=== PATIENT | male | born 1950 | race African-American/Black ===

== ENCOUNTER 2016-06-24 01:01 | Emergency (ER) | payer OTHER ==
[~2016-06-24 01:01] MED LIST: AMLODIPINE BES2.5 M1; ANT12.5 PO; ATI1 PO; ATORVASTATIN CA40 M1 PO; BENAZEPRIL HYDR20 M1 PO; BENAZEPRIL20 M1 PO; CARDIZEM CD180 MG PO; CARDIZEM CD360 MG PO; CARL PO; CIPRO500 MG PO; COL100 PO; DICLOFENAC SODI75 MG PO; DIFLUCAN200 MG PO; DILTIAZEM HCL120 M2; DILTIAZEM HCL120 M2 PO; ECO81 PO; FER300 PO; FINASTERIDE5 M1 PO; FLO4; FLO4 PO; FOL1 PO; GAS RELIEF20 MG/0.3 PO; HCTZ/LISINOPRIL1 TA1 PO; LAC PO; LEVAQUIN500 MG PO; LEVAQUIN750 MG PO; LIPI10 PO; LOTENSIN10 MG PO; MAGNESIUM OXID400 MG PO; MYL80 CH; NEU300 PO; OMEPRAZOLE DR20 M1 PO; OMEPRAZOLE40 M1 PO; REGLAN5 M1 PO; SENOKOT NATURA8.6 M1 PO; SERTRALINE HYDR25 MG PO; SIMETHICONE80 MG PO; SULFAMETHOXAZOL1 PO1 PO; SULFAMETHOXAZOL1 TA3 PO; TAMSULOSIN HCL0.4 MG PO; THERAGRAN-M1 TA4 PO; THI100 PO; TRAZODONE50 M1 PO; XARELTO10 M1; XARELTO10 M1 PO; XARELTO20 M1 PO; ZOFRAN ODT4 MG SL; ZOLOFT50 MG PO; [UNRECOGNIZED DRUG - OTHER]
[2016-06-24 01:51] LABS: PLATELET COUNT 340 x10^3mcL (130-400)
[2016-06-24 01:54] LABS: BASOPHIL % 2.4 % (0-2)
[2016-06-24 02:09] LABS: CARBON DIOXIDE 15.4 mmol/L (21-32); CREATININE SERUM 1.4 mg/dL (0.7-1.3); POTASSIUM SERUM 3.3 mmol/L (3.5-5.1)
[2016-06-24 02:13] LABS: BILIRUBIN TOTAL 1.1 mg/dL (0.20-1.00); TOTAL PROTEIN, SERUM 7.5 g/dL (6.4-8.2)
[2016-06-24 02:16] LABS: ALBUMIN 2.9 g/dL (3.4-5.0)
[2016-06-24 05:25] LABS: UA SPECIFIC GRAVITY >=1.030 (1.005-1.035); microscopic required? YES; urine erythrocyte NEGATIVE (NEGATIVE)
[2016-06-24 06:20] LABS: AMPHETAMINE QUAL UR NONE DETECTED (NEG <=1000)
[2016-06-24 06:29] LABS: MAGNESIUM 1.8 mg/dL (1.8-2.4)
[2016-06-24 06:30] LABS: CHOLESTEROL/HDL RATIO 2.8
[2016-06-24 09:56] LABS: T3 TOTAL 0.67 ng/mL
[2016-06-24 12:20] LABS: FREE THYROXINE INDEX 2.3 ug/dL (1.4-4.5); T4(THYROXINE) 6.5 ug/dL (4.7-13.3)
[2016-06-24 12:22] LABS: FREE T4 0.96 ng/dL (0.76-1.46)
[2016-06-24 13:51] VITALS: BP 147/85
== END 2016-06-24 13:51 | disposition home or self-care (01) ==
LOC: ED 01:01
PROVIDERS: Emergency Medicine; Family Medicine
DX: E87.2 Acidosis (principal); I10 Essential (primary) hypertension; C61 Malignant neoplasm of prostate; K21.9 Gastro-esophageal reflux disease without esophagitis; I26.99 Other pulmonary embolism without acute cor pulmonale
CPT/HCPCS: 36600; 80307; 83880; 84439; G0480; J2270; J2405; J2765; J3010; J3411; J3475; J3480; J3490; J7030; J7042

== ENCOUNTER 2016-07-17 14:43 | Emergency (ER) | payer OTHER ==
[~2016-07-17] VITALS: Ht 175.3 cm; Wt 90.7 kg
[2016-07-17 21:05] VITALS: BP 146/88
== END 2016-07-17 21:05 | disposition home or self-care (01) ==
LOC: ED 14:43
DX: F10.129 Alcohol abuse with intoxication, unspecified (principal); Z79.899 Other long term (current) drug therapy; I10 Essential (primary) hypertension
CPT/HCPCS: J2405; J3490; J7030

== ENCOUNTER 2016-09-23 10:15 | Inpatient (IN) | payer OTHER ==
[~2016-09-23] VITALS: Ht 175.3 cm; Wt 81.4 kg
[2016-09-23 11:41] LABS: BASOPHIL % 0.1 % (0-2); PLATELET COUNT 286 x10^3mcL (130-400)
[2016-09-23 11:44] LABS: RED CELL DISTRIBUTION WIDTH 15.9 % (11.5-14.5)
[2016-09-23 11:49] LABS: CALCIUM 8.3 mg/dL (8.5-10.1); CARBON DIOXIDE 21.2 mmol/L (21-32); POTASSIUM SERUM 3.8 mmol/L (3.5-5.1)
[2016-09-23 11:53] LABS: ALBUMIN 3.6 g/dL (3.4-5.0); BILIRUBIN TOTAL 1.38 mg/dL (0.20-1.00); MAGNESIUM 1.5 mg/dL (1.8-2.4); TOTAL PROTEIN, SERUM 8.7 g/dL (6.4-8.2)
[2016-09-23 13:12] LABS: PHOSPHOROUS 5.7 mg/dL (2.5-4.9)
[2016-09-23 13:13] LABS: CHOLESTEROL/HDL RATIO 2.4
[2016-09-23 13:22] VITALS: BP 129/96
[2016-09-23 13:29] VITALS: Ht 175.3 cm; Wt 81.4 kg
[2016-09-23 13:40] LABS: T3 TOTAL 0.71 ng/mL
[2016-09-23 13:42] LABS: FREE T4 0.97 ng/dL (0.76-1.46); FREE THYROXINE INDEX 2.7 ug/dL (1.4-4.5); T4(THYROXINE) 8.1 ug/dL (4.7-13.3)
[2016-09-23 14:51] VITALS: BP 136/79
[2016-09-23 17:18] VITALS: BP 118/79
[2016-09-23 17:20] LABS: UA SPECIFIC GRAVITY >=1.030 (1.005-1.035); microscopic required? YES; urine erythrocyte TRACE (NEGATIVE)
[2016-09-23 17:40] LABS: AMPHETAMINE QUAL UR NONE DETECTED (NEG <=1000)
[2016-09-23 21:48] VITALS: BP 131/79
[2016-09-24 05:19] VITALS: BP 144/92
[2016-09-24 05:43] LABS: CALCIUM 7.7 mg/dL (8.5-10.1); CARBON DIOXIDE 29.1 mmol/L (21-32); CHLORIDE SERUM 97 mmol/L (98-107); CREATININE SERUM 1.4 mg/dL (0.7-1.3); GFR1 54 mL/min; GLUCOSE SERUM 137 mg/dL (74-106); MAGNESIUM 1.9 mg/dL (1.8-2.4); PHOSPHOROUS 2.8 mg/dL (2.5-4.9); POTASSIUM SERUM 3.7 mmol/L (3.5-5.1); SODIUM SERUM 138 mmol/L (136-145)
[2016-09-24 06:12] LABS: BASOPHIL % 0.2 % (0-2); PLATELET COUNT 199 x10^3mcL (130-400)
[2016-09-24 06:15] LABS: RED CELL DISTRIBUTION WIDTH 16.4 % (11.5-14.5)
[2016-09-24 09:33] VITALS: BP 128/87
[2016-09-24 14:08] VITALS: BP 127/86
[2016-09-24 18:12] VITALS: BP 116/77
[2016-09-24 22:18] VITALS: BP 122/91
[2016-09-25 06:02] VITALS: BP 146/78
[2016-09-25 10:16] VITALS: BP 104/69
[2016-09-25 17:57] VITALS: BP 117/72
[2016-09-25 21:52] VITALS: BP 101/62
[2016-09-26 06:06] VITALS: BP 159/100
[2016-09-26 09:52] VITALS: BP 90/60
[2016-09-26 11:02] LABS: BASOPHIL % 0.3 % (0-2); PLATELET COUNT 132 x10^3mcL (130-400)
[2016-09-26 11:04] LABS: RED CELL DISTRIBUTION WIDTH 15.7 % (11.5-14.5)
[2016-09-26 12:38] LABS: CALCIUM 8.4 mg/dL (8.5-10.1); CARBON DIOXIDE 33.4 mmol/L (21-32); CHLORIDE SERUM 99 mmol/L (98-107); CREATININE SERUM 1.2 mg/dL (0.7-1.3); GFR1 > 60 mL/min; GLUCOSE SERUM 115 mg/dL (74-106); MAGNESIUM 1.5 mg/dL (1.8-2.4); PHOSPHOROUS 2.5 mg/dL (2.5-4.9); SODIUM SERUM 137 mmol/L (136-145)
[2016-09-26 12:40] LABS: POTASSIUM SERUM 2.5 mmol/L (3.5-5.1)
[2016-09-26 17:17] VITALS: BP 145/97
[2016-09-26 22:58] VITALS: BP 144/99
[2016-09-27 06:21] LABS: CALCIUM 8.7 mg/dL (8.5-10.1); CARBON DIOXIDE 34.1 mmol/L (21-32); CHLORIDE SERUM 101 mmol/L (98-107); CREATININE SERUM 1.1 mg/dL (0.7-1.3); GFR1 > 60 mL/min; GLUCOSE SERUM 108 mg/dL (74-106); MAGNESIUM 1.5 mg/dL (1.8-2.4); PHOSPHOROUS 2.3 mg/dL (2.5-4.9); SODIUM SERUM 139 mmol/L (136-145)
[2016-09-27 08:58] VITALS: BP 131/92
[2016-09-27] MEDS ORDERED: GOOD SENSE OMEP20 MG PO (13:56)
[2016-09-27] MEDS ORDERED: LAC30L PO (14:01)
[2016-09-27] MEDS ORDERED: ATIVAN2 MG PO (14:02)
[2016-09-27 14:24] VITALS: BP 131/92
[2016-09-27 14:26] VITALS: BP 131/92
[2016-09-27] MEDS ORDERED: LOTENSIN40 MG PO (14:26)
[2016-09-27 15:59] LABS: CALCIUM 8.7 mg/dL (8.5-10.1); CARBON DIOXIDE 31.5 mmol/L (21-32); CREATININE SERUM 1.4 mg/dL (0.7-1.3); MAGNESIUM 2.1 mg/dL (1.8-2.4)
== END 2016-09-27 18:00 | disposition home or self-care (01) | DRG 377 ==
LOC: ED 10:15 → MU 12:24 → DU 12:24 → MU 09-25 10:38
PROVIDERS: Emergency Medicine; Family Medicine; ADMIT Family Medicine
DX: K29.01 Acute gastritis with bleeding (principal); N17.0 Acute kidney failure with tubular necrosis; G92 Toxic encephalopathy; I50.43 Acute on chronic combined systolic (congestive) and diastolic (congestive) heart failure; F10.239 Alcohol dependence with withdrawal, unspecified; E87.0 Hyperosmolality and hypernatremia; T51.0X1A Toxic effect of ethanol, accidental (unintentional), initial encounter; I11.0 Hypertensive heart disease with heart failure; F10.229 Alcohol dependence with intoxication, unspecified; K21.9 Gastro-esophageal reflux disease without esophagitis; I48.2 Chronic atrial fibrillation; B18.2 Chronic viral hepatitis C; Z68.26 Body mass index [BMI] 26.0-26.9, adult; Z85.46 Personal history of malignant neoplasm of prostate; Z92.3 Personal history of irradiation; Z79.01 Long term (current) use of anticoagulants; Y90.1 Blood alcohol level of 20-39 mg/100 ml; Y92.009 Unspecified place in unspecified non-institutional (private) residence as the place of occurrence of the external cause
CPT/HCPCS: 83880; 84439; 94150; C9113; G0480; J2060; J2270; J2405; J2765; J3010; J3475; J3480; J3490; J7030; J7620; Q0092

== ENCOUNTER 2016-10-18 17:07 | Inpatient (IN) | payer OTHER ==
[~2016-10-18] VITALS: Ht 175.3 cm; Wt 87.2 kg
[~2016-10-18 17:07] MED LIST changes: +ATIVAN2 MG PO; +GOOD SENSE OMEP20 MG PO; +LAC30L PO; +LOTENSIN40 MG PO
[2016-10-18 18:10] LABS: BASOPHIL % 0.4 % (0-2); PLATELET COUNT 289 x10^3mcL (130-400); RED CELL DISTRIBUTION WIDTH 15.8 % (11.5-14.5)
[2016-10-18 18:21] LABS: BILIRUBIN TOTAL 0.87 mg/dL (0.20-1.00); CALCIUM 7.9 mg/dL (8.5-10.1); CARBON DIOXIDE 32.3 mmol/L (21-32); CREATININE SERUM 1.5 mg/dL (0.7-1.3); TOTAL PROTEIN, SERUM 6.6 g/dL (6.4-8.2)
[2016-10-18 18:26] LABS: ALBUMIN 2.7 g/dL (3.4-5.0)
[2016-10-18 18:27] LABS: POTASSIUM SERUM 2.6 mmol/L (3.5-5.1)
[2016-10-18 20:57] LABS: MAGNESIUM 1.1 mg/dL (1.8-2.4); PHOSPHOROUS 3.6 mg/dL (2.5-4.9)
[2016-10-18 22:01] LABS: microscopic required? YES; urine erythrocyte NEGATIVE (NEGATIVE)
[2016-10-18 22:20] LABS: AMPHETAMINE QUAL UR NONE DETECTED (NEG <=1000)
[2016-10-19 05:12] LABS: BASOPHIL % 0.8 % (0-2); PLATELET COUNT 217 x10^3mcL (130-400)
[2016-10-19 05:13] LABS: RED CELL DISTRIBUTION WIDTH 15.7 % (11.5-14.5)
[2016-10-19 05:22] LABS: CALCIUM 7.7 mg/dL (8.5-10.1); CARBON DIOXIDE 35.4 mmol/L (21-32); CHLORIDE SERUM 102 mmol/L (98-107); CREATININE SERUM 1.2 mg/dL (0.7-1.3); GFR1 > 60 mL/min; GLUCOSE SERUM 103 mg/dL (74-106); MAGNESIUM 1.1 mg/dL (1.8-2.4); PHOSPHOROUS 2.7 mg/dL (2.5-4.9); SODIUM SERUM 144 mmol/L (136-145)
[2016-10-19 17:56] VITALS: BP 166/105
[2016-10-20 09:13] VITALS: BP 122/83
[2016-10-20 12:55] VITALS: BP 133/88
[2016-10-20 16:03] LABS: BASOPHIL % 1.7 % (0-2); PLATELET COUNT 175 x10^3mcL (130-400)
[2016-10-20 16:07] LABS: RED CELL DISTRIBUTION WIDTH 15.5 % (11.5-14.5)
[2016-10-20 17:29] VITALS: BP 125/83
[2016-10-20 19:14] LABS: CALCIUM 7.7 mg/dL (8.5-10.1); CARBON DIOXIDE 23.6 mmol/L (21-32); CREATININE SERUM 1.5 mg/dL (0.7-1.3); MAGNESIUM 1.4 mg/dL (1.8-2.4); PHOSPHOROUS 3.2 mg/dL (2.5-4.9); POTASSIUM SERUM 3.9 mmol/L (3.5-5.1)
[2016-10-20 22:55] VITALS: BP 113/76
[2016-10-21 06:14] VITALS: BP 129/83
[2016-10-21 06:35] LABS: BASOPHIL % 0.5 % (0-2); PLATELET COUNT 156 x10^3mcL (130-400)
[2016-10-21 06:45] LABS: RED CELL DISTRIBUTION WIDTH 15.8 % (11.5-14.5)
[2016-10-21 07:03] LABS: CARBON DIOXIDE 29.2 mmol/L (21-32); CREATININE SERUM 1.4 mg/dL (0.7-1.3); MAGNESIUM 1.9 mg/dL (1.8-2.4); PHOSPHOROUS 3.3 mg/dL (2.5-4.9)
[2016-10-21 07:05] LABS: POTASSIUM SERUM 2.9 mmol/L (3.5-5.1)
[2016-10-21 10:59] VITALS: BP 119/70
[2016-10-21 13:18] LABS: CARBON DIOXIDE 28.3 mmol/L (21-32); CHLORIDE SERUM 105 mmol/L (98-107); CREATININE SERUM 1.2 mg/dL (0.7-1.3); GFR1 > 60 mL/min; GLUCOSE SERUM 111 mg/dL (74-106); POTASSIUM SERUM 3.8 mmol/L (3.5-5.1); SODIUM SERUM 136 mmol/L (136-145)
[2016-10-21 15:15] VITALS: BP 83/56
[2016-10-21 17:09] VITALS: BP 102/73
[2016-10-21 21:52] VITALS: BP 106/68
[2016-10-22 06:21] VITALS: BP 115/72
[2016-10-22 06:53] LABS: CALCIUM 7.9 mg/dL (8.5-10.1); CARBON DIOXIDE 26.6 mmol/L (21-32); CHLORIDE SERUM 104 mmol/L (98-107); CREATININE SERUM 1.1 mg/dL (0.7-1.3); GFR1 > 60 mL/min; GLUCOSE SERUM 105 mg/dL (74-106); MAGNESIUM 1.7 mg/dL (1.8-2.4); PHOSPHOROUS 2.5 mg/dL (2.5-4.9); POTASSIUM SERUM 3.6 mmol/L (3.5-5.1); SODIUM SERUM 140 mmol/L (136-145)
[2016-10-22 09:06] VITALS: BP 114/64
[2016-10-22 10:01] LABS: PLATELET COUNT 160 x10^3mcL (130-400)
[2016-10-22 10:42] VITALS: BP 114/64
[2016-10-22 11:35] LABS: RED CELL DISTRIBUTION WIDTH 14.7 % (11.5-14.5)
[2016-10-22 12:21] LABS: BAND NEUTROPHIL 0 % (0-10); BASOPHIL 1 % (0-2); MONOCYTE 7 % (0-7); SEGMENTED NEUTROPHILS 43 % (37-75)
[2016-10-22 12:22] LABS: PLATELET MORPHOLOGY PLATELETS DECREASED; rbc morphology (normal/abnorm) ABNORMAL (NORMAL)
== END 2016-10-22 12:56 | disposition home or self-care (01) | DRG 391 ==
LOC: ED 17:07 → DU 10-19 17:14
PROVIDERS: Emergency Medicine; Family Medicine; ADMIT Family Medicine
DX: K21.9 Gastro-esophageal reflux disease without esophagitis (principal); G92 Toxic encephalopathy; G93.41 Metabolic encephalopathy; I50.43 Acute on chronic combined systolic (congestive) and diastolic (congestive) heart failure; N17.0 Acute kidney failure with tubular necrosis; F10.231 Alcohol dependence with withdrawal delirium; E87.0 Hyperosmolality and hypernatremia; E44.1 Mild protein-calorie malnutrition; T51.0X1A Toxic effect of ethanol, accidental (unintentional), initial encounter; F10.229 Alcohol dependence with intoxication, unspecified; I11.0 Hypertensive heart disease with heart failure; G25.2 Other specified forms of tremor; E87.6 Hypokalemia; E83.42 Hypomagnesemia; B18.2 Chronic viral hepatitis C; D64.9 Anemia, unspecified; F43.23 Adjustment disorder with mixed anxiety and depressed mood; F19.10 Other psychoactive substance abuse, uncomplicated; Z68.28 Body mass index [BMI] 28.0-28.9, adult; Z91.19 Patient's noncompliance with other medical treatment and regimen; Z59.0 Homelessness; Z85.46 Personal history of malignant neoplasm of prostate; Y90.4 Blood alcohol level of 80-99 mg/100 ml; Y92.89 Other specified places as the place of occurrence of the external cause
CPT/HCPCS: 83880; G0480; J0360; J0696; J2060; J2405; J2550; J3475; J3480; J3490; J7030; J7050

== ENCOUNTER 2016-11-04 16:49 | Emergency (ER) | payer OTHER ==
[2016-11-04 17:45] LABS: BASOPHIL % 0.4 % (0-2)
[2016-11-04 17:47] LABS: PLATELET COUNT 430 x10^3mcL (130-400); RED CELL DISTRIBUTION WIDTH 15.9 % (11.5-14.5)
[2016-11-04 17:52] LABS: CALCIUM 8.3 mg/dL (8.5-10.1); CARBON DIOXIDE 26.7 mmol/L (21-32); CHLORIDE SERUM 101 mmol/L (98-107); CREATININE SERUM 1.4 mg/dL (0.7-1.3); GFR1 54 mL/min; GLUCOSE SERUM 139 mg/dL (74-106); POTASSIUM SERUM 3.1 mmol/L (3.5-5.1); SODIUM SERUM 140 mmol/L (136-145)
[2016-11-04 17:56] LABS: ALKALINE PHOSPHATASE 89 U/L (46-116); ALT/SGPT 78 U/L (16-63); AST/SGOT 94 U/L (15-37); BILIRUBIN TOTAL 1.1 mg/dL (0.20-1.00); LIPASE 131 IU/L (73-393); MAGNESIUM 1.2 mg/dL (1.8-2.4); TOTAL PROTEIN, SERUM 7.2 g/dL (6.4-8.2)
[2016-11-04 19:02] LABS: UA SPECIFIC GRAVITY 1.025 (1.005-1.035); microscopic required? YES; urine erythrocyte NEGATIVE (NEGATIVE)
[2016-11-04 20:26] LABS: AMPHETAMINE QUAL UR NONE DETECTED (NEG <=1000)
[2016-11-04 20:27] LABS: PHOSPHOROUS 2.9 mg/dL (2.5-4.9)
[2016-11-04 20:33] LABS: T3 TOTAL 0.88 ng/mL
[2016-11-04 20:36] LABS: CHOLESTEROL/HDL RATIO 2.6
[2016-11-04 20:41] LABS: FREE T4 1.07 ng/dL (0.76-1.46); FREE THYROXINE INDEX 3.1 ug/dL (1.4-4.5)
[2016-11-05 01:36] LABS: BASOPHIL % 0.3 % (0-2); PLATELET COUNT 329 x10^3mcL (130-400)
[2016-11-05 01:37] LABS: RED CELL DISTRIBUTION WIDTH 15.7 % (11.5-14.5)
[2016-11-05 01:55] LABS: CALCIUM 7.9 mg/dL (8.5-10.1); CARBON DIOXIDE 28.6 mmol/L (21-32); CHLORIDE SERUM 104 mmol/L (98-107); CREATININE SERUM 1.2 mg/dL (0.7-1.3); GFR1 > 60 mL/min; GLUCOSE SERUM 103 mg/dL (74-106); POTASSIUM SERUM 3.6 mmol/L (3.5-5.1); SODIUM SERUM 144 mmol/L (136-145)
[2016-11-05 14:57] VITALS: BP 110/70
== END 2016-11-05 14:58 | disposition home or self-care (01) ==
LOC: ED 16:49
PROVIDERS: Emergency Medicine; Family Medicine
DX: I48.91 Unspecified atrial fibrillation (principal); I10 Essential (primary) hypertension; F10.129 Alcohol abuse with intoxication, unspecified; D64.9 Anemia, unspecified; K29.00 Acute gastritis without bleeding; E78.5 Hyperlipidemia, unspecified; K21.9 Gastro-esophageal reflux disease without esophagitis; Z88.8 Allergy status to other drugs, medicaments and biological substances
CPT/HCPCS: 83880; 84439; C9113; G0480; J0696; J2060; J2270; J2405; J3475; J3490; J7030

== ENCOUNTER 2016-12-06 14:42 | Inpatient (IN) | payer OTHER ==
[~2016-12-06] VITALS: Ht 175.3 cm; Wt 90.7 kg
[2016-12-06 16:12] LABS: BASOPHIL % 1.9 % (0-2); PLATELET COUNT 323 x10^3mcL (130-400)
[2016-12-06 16:16] LABS: CALCIUM 7.9 mg/dL (8.5-10.1); CARBON DIOXIDE 23.2 mmol/L (21-32); CHLORIDE SERUM 98 mmol/L (98-107); CREATININE SERUM 1.2 mg/dL (0.7-1.3); GFR1 > 60 mL/min; GLUCOSE SERUM 138 mg/dL (74-106); POTASSIUM SERUM 3.1 mmol/L (3.5-5.1); SODIUM SERUM 139 mmol/L (136-145)
[2016-12-06 16:18] LABS: RED CELL DISTRIBUTION WIDTH 18.5 % (11.5-14.5)
[2016-12-06 16:22] LABS: ALKALINE PHOSPHATASE 96 U/L (46-116); ALT/SGPT 59 U/L (16-63); AST/SGOT 89 U/L (15-37); BILIRUBIN TOTAL 0.64 mg/dL (0.20-1.00); CHOLESTEROL 176 mg/dL (<200); PHOSPHOROUS 3.5 mg/dL (2.5-4.9); TOTAL PROTEIN, SERUM 7.8 g/dL (6.4-8.2); URIC ACID 9.7 mg/dL (3.5-7.2)
[2016-12-06 16:27] LABS: HDL CHOLESTEROL 97 mg/dL (40-60)
[2016-12-06 18:15] LABS: MAGNESIUM 1.5 mg/dL (1.8-2.4)
[2016-12-06 18:18] VITALS: BP 138/84
[2016-12-06 18:28] LABS: T3 TOTAL 0.77 ng/mL
[2016-12-06 18:38] VITALS: Ht 175.3 cm; Wt 90.7 kg
[2016-12-06 18:44] LABS: FREE T4 0.81 ng/dL (0.76-1.46); FREE THYROXINE INDEX 2.2 ug/dL (1.4-4.5); T4(THYROXINE) 6.5 ug/dL (4.7-13.3)
[2016-12-06 21:38] VITALS: BP 178/95
[2016-12-06 22:14] LABS: UA SPECIFIC GRAVITY >=1.030 (1.005-1.035); microscopic required? YES; urine erythrocyte TRACE (NEGATIVE)
[2016-12-06 22:21] LABS: AMPHETAMINE QUAL UR NONE DETECTED (NEG <=1000)
[2016-12-07 00:50] VITALS: BP 149/86
[2016-12-07 04:56] VITALS: BP 155/79
[2016-12-07 07:35] VITALS: BP 185/103
[2016-12-07 07:45] LABS: CALCIUM 7.8 mg/dL (8.5-10.1); CARBON DIOXIDE 27.7 mmol/L (21-32); CHLORIDE SERUM 100 mmol/L (98-107); GFR1 > 60 mL/min; GLUCOSE SERUM 115 mg/dL (74-106); POTASSIUM SERUM 3.8 mmol/L (3.5-5.1); SODIUM SERUM 138 mmol/L (136-145)
[2016-12-07 07:53] LABS: BASOPHIL % 0.1 % (0-2); PLATELET COUNT 212 x10^3mcL (130-400); RED CELL DISTRIBUTION WIDTH 18.7 % (11.5-14.5)
[2016-12-07 11:40] VITALS: BP 168/89
[2016-12-07 12:54] VITALS: BP 128/63
== END 2016-12-07 19:20 | disposition left against medical advice (07) | DRG 391 ==
LOC: ED 14:42 → DU 17:12
PROVIDERS: Emergency Medicine; Family Medicine; ADMIT Family Medicine
DX: K21.9 Gastro-esophageal reflux disease without esophagitis (principal); G92 Toxic encephalopathy; N17.0 Acute kidney failure with tubular necrosis; E44.0 Moderate protein-calorie malnutrition; R65.10 Systemic inflammatory response syndrome (SIRS) of non-infectious origin without acute organ dysfunction; K92.0 Hematemesis; T51.0X1A Toxic effect of ethanol, accidental (unintentional), initial encounter; F10.229 Alcohol dependence with intoxication, unspecified; Y90.8 Blood alcohol level of 240 mg/100 ml or more; R31.29 Other microscopic hematuria; D64.9 Anemia, unspecified; E87.6 Hypokalemia; E83.42 Hypomagnesemia; I48.2 Chronic atrial fibrillation; E78.5 Hyperlipidemia, unspecified; E66.3 Overweight; Z68.29 Body mass index [BMI] 29.0-29.9, adult; Z85.46 Personal history of malignant neoplasm of prostate; Y92.009 Unspecified place in unspecified non-institutional (private) residence as the place of occurrence of the external cause
CPT/HCPCS: 83880; 84439; C9113; G0480; J0360; J0696; J2270; J2405; J2550; J3475; J7030; Q0092

== ENCOUNTER 2017-01-06 08:34 | Inpatient (IN) | payer OTHER ==
[~2017-01-06] VITALS: Ht 175.3 cm; Wt 81.3 kg
[2017-01-06 09:26] LABS: BASOPHIL % 0.7 % (0-2); PLATELET COUNT 239 x10^3mcL (130-400)
[2017-01-06 09:29] LABS: BILIRUBIN TOTAL 1.1 mg/dL (0.20-1.00); CALCIUM 8.2 mg/dL (8.5-10.1); CARBON DIOXIDE 29.2 mmol/L (21-32); CREATININE SERUM 1.5 mg/dL (0.7-1.3); TOTAL PROTEIN, SERUM 7.4 g/dL (6.4-8.2)
[2017-01-06 09:38] LABS: ALBUMIN 2.8 g/dL (3.4-5.0); POTASSIUM SERUM 2.3 mmol/L (3.5-5.1)
[2017-01-06 09:56] LABS: FREE T4 1.32 ng/dL (0.76-1.46); FREE THYROXINE INDEX 3.4 ug/dL (1.4-4.5); T4(THYROXINE) 8.6 ug/dL (4.7-13.3)
[2017-01-06 10:26] LABS: T3 TOTAL 0.91 ng/mL
[2017-01-06 10:29] LABS: UA SPECIFIC GRAVITY <=1.005 (1.005-1.035); microscopic required? YES; urine erythrocyte NEGATIVE (NEGATIVE)
[2017-01-06 10:48] LABS: MAGNESIUM 1.1 mg/dL (1.8-2.4); PHOSPHOROUS 2.8 mg/dL (2.5-4.9)
[2017-01-06 11:01] LABS: AMPHETAMINE QUAL UR NONE DETECTED (NEG <=1000)
[2017-01-06 11:55] VITALS: BP 119/71
[2017-01-06 13:30] VITALS: BP 119/71
[2017-01-06 16:30] VITALS: BP 137/95
[2017-01-06 20:43] VITALS: BP 132/79
[2017-01-07 05:14] VITALS: BP 136/94
[2017-01-07 07:01] LABS: BASOPHIL % 0.5 % (0-2); PLATELET COUNT 181 x10^3mcL (130-400)
[2017-01-07 07:03] LABS: RED CELL DISTRIBUTION WIDTH 21.4 % (11.5-14.5)
[2017-01-07 07:58] LABS: CALCIUM 8.3 mg/dL (8.5-10.1); CARBON DIOXIDE 28.1 mmol/L (21-32); CREATININE SERUM 1.6 mg/dL (0.7-1.3); PHOSPHOROUS 3.7 mg/dL (2.5-4.9)
[2017-01-07 08:17] LABS: rbc morphology (normal/abnorm) ABNORMAL (NORMAL); target cell (codocyte) 1+; tear drop cell (dacryocyte) 1+
[2017-01-07 09:25] VITALS: BP 113/83
[2017-01-07 15:17] VITALS: BP 113/83
[2017-01-07 16:42] VITALS: BP 128/88
== END 2017-01-07 20:03 | disposition home or self-care (01) | DRG 391 ==
LOC: ED 08:34 → DU 09:51
PROVIDERS: Specialist; ADMIT Family Medicine Sports Medicine
DX: K21.9 Gastro-esophageal reflux disease without esophagitis (principal); E43 Unspecified severe protein-calorie malnutrition; N17.0 Acute kidney failure with tubular necrosis; G92 Toxic encephalopathy; I50.43 Acute on chronic combined systolic (congestive) and diastolic (congestive) heart failure; K85.90 Acute pancreatitis without necrosis or infection, unspecified; E87.1 Hypo-osmolality and hyponatremia; I48.2 Chronic atrial fibrillation; F14.11 Cocaine abuse, in remission; F10.220 Alcohol dependence with intoxication, uncomplicated; E83.42 Hypomagnesemia; E87.6 Hypokalemia; E80.6 Other disorders of bilirubin metabolism; D64.9 Anemia, unspecified; E78.5 Hyperlipidemia, unspecified; F12.10 Cannabis abuse, uncomplicated; E66.3 Overweight; Z68.26 Body mass index [BMI] 26.0-26.9, adult; Z87.891 Personal history of nicotine dependence; Z85.46 Personal history of malignant neoplasm of prostate
CPT/HCPCS: 83880; 84439; A9500; G0480; J0696; J1160; J1170; J2270; J2405; J2543; J2550; J2785; J3475; J3480; J3490; J7030; J7620; Q0092

== ENCOUNTER 2017-02-26 00:57 | Inpatient (IN) | payer OTHER ==
[~2017-02-26] VITALS: Ht 175.3 cm; Wt 81.6 kg
[2017-02-26 02:15] LABS: CALCIUM 8.7 mg/dL (8.5-10.1); CARBON DIOXIDE 26.6 mmol/L (21-32); CHLORIDE SERUM 95 mmol/L (98-107); GFR1 36 mL/min; GLUCOSE SERUM 112 mg/dL (74-106); POTASSIUM SERUM 3.2 mmol/L (3.5-5.1); SODIUM SERUM 135 mmol/L (136-145)
[2017-02-26 02:24] LABS: PLATELET COUNT 160 x10^3mcL (130-400)
[2017-02-26 02:26] LABS: BASOPHIL % 0 % (0-2); RED CELL DISTRIBUTION WIDTH 20.5 % (11.5-14.5)
[2017-02-26 02:27] LABS: ALBUMIN 3.3 g/dL (3.4-5.0); ALKALINE PHOSPHATASE 101 U/L (46-116); ALT/SGPT 52 U/L (16-63); AST/SGOT 63 U/L (15-37); BILIRUBIN TOTAL 2.2 mg/dL (0.20-1.00); FREE T4 1.23 ng/dL (0.76-1.46); TOTAL PROTEIN, SERUM 7.9 g/dL (6.4-8.2)
[2017-02-26 05:49] LABS: T3 TOTAL 1.49 ng/mL
[2017-02-26 05:55] LABS: MAGNESIUM 1.2 mg/dL (1.8-2.4); PHOSPHOROUS 4.6 mg/dL (2.5-4.9)
[2017-02-26 06:01] LABS: CHOLESTEROL/HDL RATIO 1.9
[2017-02-26 06:03] LABS: FREE T4 1.2 ng/dL (0.76-1.46); FREE THYROXINE INDEX 3.2 ug/dL (1.4-4.5); T4(THYROXINE) 9.4 ug/dL (4.7-13.3)
[2017-02-26 07:45] VITALS: BP 111/90
[2017-02-26 13:11] VITALS: BP 126/87
[2017-02-26 16:38] VITALS: Ht 175.3 cm; Wt 81.6 kg
[2017-02-26 18:10] VITALS: BP 134/85
[2017-02-26 19:25] LABS: UA SPECIFIC GRAVITY 1.025 (1.005-1.035); microscopic required? YES; urine erythrocyte TRACE (NEGATIVE)
[2017-02-26 19:34] LABS: AMPHETAMINE QUAL UR NONE DETECTED (NEG <=1000)
[2017-02-26 21:53] VITALS: BP 147/90
[2017-02-27 06:14] LABS: BASOPHIL % 0.9 % (0-2); PLATELET COUNT 170 x10^3mcL (130-400)
[2017-02-27 06:21] LABS: RED CELL DISTRIBUTION WIDTH 20.9 % (11.5-14.5)
[2017-02-27 06:49] LABS: CALCIUM 8.9 mg/dL (8.5-10.1); CARBON DIOXIDE 28.9 mmol/L (21-32); CREATININE SERUM 1.8 mg/dL (0.7-1.3); MAGNESIUM 2.4 mg/dL (1.8-2.4); PHOSPHOROUS 3.5 mg/dL (2.5-4.9)
[2017-02-27 06:52] LABS: POTASSIUM SERUM 2.9 mmol/L (3.5-5.1)
[2017-02-27 07:36] LABS: rbc morphology (normal/abnorm) ABNORMAL (NORMAL)
[2017-02-27 10:03] VITALS: BP 150/101
[2017-02-27 13:44] VITALS: BP 98/62
[2017-02-27 17:25] VITALS: BP 147/94
[2017-02-27 22:22] LABS: CALCIUM 8.3 mg/dL (8.5-10.1); CARBON DIOXIDE 26.4 mmol/L (21-32); CREATININE SERUM 1.3 mg/dL (0.7-1.3); POTASSIUM SERUM 3.7 mmol/L (3.5-5.1)
[2017-02-27 23:39] VITALS: BP 157/92
[2017-02-28 06:36] VITALS: BP 155/85
[2017-02-28 06:44] LABS: BASOPHIL % 0.7 % (0-2); PLATELET COUNT 146 x10^3mcL (130-400)
[2017-02-28 06:45] LABS: CALCIUM 8.5 mg/dL (8.5-10.1); CARBON DIOXIDE 27.8 mmol/L (21-32); CHLORIDE SERUM 108 mmol/L (98-107); CREATININE SERUM 1.2 mg/dL (0.7-1.3); GFR1 > 60 mL/min; GLUCOSE SERUM 106 mg/dL (74-106); MAGNESIUM 2.1 mg/dL (1.8-2.4); PHOSPHOROUS 3.2 mg/dL (2.5-4.9); POTASSIUM SERUM 3.6 mmol/L (3.5-5.1); SODIUM SERUM 142 mmol/L (136-145)
[2017-02-28 07:04] LABS: RED CELL DISTRIBUTION WIDTH 20.4 % (11.5-14.5); rbc morphology (normal/abnorm) ABNORMAL (NORMAL)
[2017-02-28 08:19] VITALS: BP 139/88
[2017-02-28 13:45] VITALS: BP 97/63
[2017-02-28] MEDS ORDERED: GEODON20 MG PO (15:06)
[2017-02-28] MEDS ORDERED: KEFLEX500 M1 PO (15:07)
[2017-02-28] MEDS ORDERED: BD LACTINEX1.4 MG PO (15:08)
== END 2017-02-28 16:10 | disposition home or self-care (01) | DRG 896 ==
LOC: ED 00:57 → DU 04:20
PROVIDERS: Emergency Medicine; ADMIT Family Medicine
DX: F10.231 Alcohol dependence with withdrawal delirium (principal); G93.41 Metabolic encephalopathy; N17.0 Acute kidney failure with tubular necrosis; N39.0 Urinary tract infection, site not specified; E87.1 Hypo-osmolality and hyponatremia; F33.1 Major depressive disorder, recurrent, moderate; E44.1 Mild protein-calorie malnutrition; T51.0X1A Toxic effect of ethanol, accidental (unintentional), initial encounter; T68.XXXA Hypothermia, initial encounter; I48.2 Chronic atrial fibrillation; I10 Essential (primary) hypertension; E80.6 Other disorders of bilirubin metabolism; E87.6 Hypokalemia; E83.42 Hypomagnesemia; E78.5 Hyperlipidemia, unspecified; D64.9 Anemia, unspecified; F41.1 Generalized anxiety disorder; Z68.29 Body mass index [BMI] 29.0-29.9, adult; Z85.46 Personal history of malignant neoplasm of prostate; Z79.01 Long term (current) use of anticoagulants; Z87.891 Personal history of nicotine dependence
CPT/HCPCS: 83880; 84439; G0480; J0696; J3360; J3475; J3480; J3486; J7030

== ENCOUNTER 2017-04-22 10:27 | Inpatient (IN) | payer OTHER ==
[~2017-04-22] VITALS: Ht 175.3 cm; Wt 87.1 kg
[~2017-04-22 10:27] MED LIST changes: +BD LACTINEX1.4 MG PO; +GEODON20 MG PO; +KEFLEX500 M1 PO
[2017-04-22 12:51] LABS: BASOPHIL % 0.8 % (0-2); PLATELET COUNT 212 x10^3mcL (130-400)
[2017-04-22 12:54] LABS: RED CELL DISTRIBUTION WIDTH 16.7 % (11.5-14.5)
[2017-04-22 13:16] LABS: ALBUMIN 3.4 g/dL (3.4-5.0); ALKALINE PHOSPHATASE 154 U/L (46-116); ALT/SGPT 72 U/L (16-63); AST/SGOT 171 U/L (15-37); BILIRUBIN TOTAL 1.11 mg/dL (0.20-1.00); CALCIUM 8.4 mg/dL (8.5-10.1); CARBON DIOXIDE 32.5 mmol/L (21-32); CHLORIDE SERUM 86 mmol/L (98-107); CREATININE SERUM 1.2 mg/dL (0.7-1.3); GFR1 > 60 mL/min; GLUCOSE SERUM 100 mg/dL (74-106); LIPASE 544 IU/L (73-393); SODIUM SERUM 134 mmol/L (136-145); TOTAL PROTEIN, SERUM 8.1 g/dL (6.4-8.2)
[2017-04-22 13:20] LABS: POTASSIUM SERUM 2.3 mmol/L (3.5-5.1)
[2017-04-22 15:56] VITALS: BP 121/75
[2017-04-22 16:10] LABS: MAGNESIUM 1.6 mg/dL (1.8-2.4); PHOSPHOROUS 2.2 mg/dL (2.5-4.9)
[2017-04-22 21:27] VITALS: BP 101/75
[2017-04-23 06:00] VITALS: BP 136/90
[2017-04-23 07:30] LABS: BASOPHIL % 0.3 % (0-2); PLATELET COUNT 174 x10^3mcL (130-400)
[2017-04-23 07:49] LABS: RED CELL DISTRIBUTION WIDTH 17.2 % (11.5-14.5)
[2017-04-23 08:36] LABS: CALCIUM 7.8 mg/dL (8.5-10.1); CARBON DIOXIDE 32.2 mmol/L (21-32); CREATININE SERUM 1.8 mg/dL (0.7-1.3); PHOSPHOROUS 3.6 mg/dL (2.5-4.9); POTASSIUM SERUM 3.6 mmol/L (3.5-5.1)
[2017-04-23 10:36] VITALS: BP 137/87
[2017-04-23 14:44] VITALS: BP 129/59
[2017-04-23 18:51] VITALS: BP 170/105
[2017-04-23 20:37] VITALS: BP 169/92
[2017-04-24 05:30] VITALS: BP 150/99
[2017-04-24 07:21] LABS: BASOPHIL % 0.3 % (0-2); PLATELET COUNT 143 x10^3mcL (130-400)
[2017-04-24 07:24] LABS: CALCIUM 8.4 mg/dL (8.5-10.1); CARBON DIOXIDE 29.1 mmol/L (21-32); CHLORIDE SERUM 97 mmol/L (98-107); CREATININE SERUM 1.1 mg/dL (0.7-1.3); GFR1 > 60 mL/min; GLUCOSE SERUM 124 mg/dL (74-106); MAGNESIUM 1.8 mg/dL (1.8-2.4); PHOSPHOROUS 2.1 mg/dL (2.5-4.9); POTASSIUM SERUM 4.4 mmol/L (3.5-5.1); SODIUM SERUM 136 mmol/L (136-145)
[2017-04-24 07:59] LABS: RED CELL DISTRIBUTION WIDTH 17.4 % (11.5-14.5)
[2017-04-24 08:50] VITALS: BP 118/87
[2017-04-24 13:34] LABS: microscopic required? NO
[2017-04-24 13:41] LABS: UA SPECIFIC GRAVITY 1.015 (1.005-1.035); urine erythrocyte NEGATIVE (NEGATIVE)
[2017-04-24 13:49] LABS: AMPHETAMINE QUAL UR NONE DETECTED (NEG <=1000)
[2017-04-24 14:10] VITALS: BP 138/93
[2017-04-24 16:55] VITALS: BP 141/101
[2017-04-24 17:00] VITALS: BP 145/90
[2017-04-24 17:49] VITALS: Ht 175.3 cm; Wt 87.1 kg
[2017-04-24 21:07] VITALS: BP 147/109
[2017-04-25 05:32] VITALS: BP 136/85
[2017-04-25 09:50] VITALS: BP 130/89
[2017-04-25] MEDS ORDERED: GEODON20 MG PO (10:57)
[2017-04-25] MEDS ORDERED: SERTRALINE50 M1 PO (10:58)
[2017-04-25] MEDS ORDERED: FOL1 PO (10:59)
[2017-04-25] MEDS ORDERED: THERAGRAN-M1 TA4 PO (11:00)
[2017-04-25] MEDS ORDERED: THI100 PO (11:00)
[2017-04-25] MEDS ORDERED: ATIVAN2 MG PO (11:01)
[2017-04-25 17:48] VITALS: BP 97/67
[2017-04-25 20:56] VITALS: BP 114/88
[2017-04-26 05:31] VITALS: BP 125/92
[2017-04-26 07:49] LABS: CALCIUM 8.7 mg/dL (8.5-10.1); CARBON DIOXIDE 27.6 mmol/L (21-32); CHLORIDE SERUM 102 mmol/L (98-107); CREATININE SERUM 1.2 mg/dL (0.7-1.3); GFR1 > 60 mL/min; GLUCOSE SERUM 122 mg/dL (74-106); MAGNESIUM 1.4 mg/dL (1.8-2.4); PHOSPHOROUS 2.3 mg/dL (2.5-4.9); POTASSIUM SERUM 3.6 mmol/L (3.5-5.1); SODIUM SERUM 138 mmol/L (136-145)
[2017-04-26 09:44] VITALS: BP 124/102
[2017-04-26 09:49] LABS: BASOPHIL % 0.5 % (0-2); PLATELET COUNT 203 x10^3mcL (130-400)
[2017-04-26 09:54] LABS: RED CELL DISTRIBUTION WIDTH 17.5 % (11.5-14.5)
[2017-04-26 16:58] VITALS: BP 131/90
[2017-04-26 20:57] VITALS: BP 153/98
[2017-04-27 05:48] VITALS: BP 162/116
[2017-04-27 07:45] LABS: CALCIUM 8.5 mg/dL (8.5-10.1); CARBON DIOXIDE 25.6 mmol/L (21-32); CHLORIDE SERUM 105 mmol/L (98-107); CREATININE SERUM 1.1 mg/dL (0.7-1.3); GFR1 > 60 mL/min; GLUCOSE SERUM 108 mg/dL (74-106); POTASSIUM SERUM 3.9 mmol/L (3.5-5.1); SODIUM SERUM 140 mmol/L (136-145)
[2017-04-27 08:47] VITALS: BP 146/109
[2017-04-27 09:18] LABS: BASOPHIL % 0.7 % (0-2); PLATELET COUNT 223 x10^3mcL (130-400); RED CELL DISTRIBUTION WIDTH 18.2 % (11.5-14.5)
[2017-04-27 17:13] VITALS: BP 146/115
[2017-04-27 21:25] VITALS: BP 163/116
[2017-04-28] VITALS (7 sets, daily range): BP systolic 139–171; BP diastolic 94–188
[2017-04-28 12:12] LABS: BASOPHIL % 0.5 % (0-2); PLATELET COUNT 256 x10^3mcL (130-400); RED CELL DISTRIBUTION WIDTH 17.9 % (11.5-14.5)
[2017-04-28 13:07] LABS: CALCIUM 8.4 mg/dL (8.5-10.1); CARBON DIOXIDE 22.4 mmol/L (21-32); CHLORIDE SERUM 104 mmol/L (98-107); CREATININE SERUM 1.1 mg/dL (0.7-1.3); GFR1 > 60 mL/min; GLUCOSE SERUM 103 mg/dL (74-106); MAGNESIUM 1.8 mg/dL (1.8-2.4); PHOSPHOROUS 4.8 mg/dL (2.5-4.9); POTASSIUM SERUM 4.3 mmol/L (3.5-5.1); SODIUM SERUM 137 mmol/L (136-145)
[2017-04-29 05:29] VITALS: BP 152/102
[2017-04-29 06:52] LABS: CALCIUM 8.4 mg/dL (8.5-10.1); CARBON DIOXIDE 24.9 mmol/L (21-32); CHLORIDE SERUM 106 mmol/L (98-107); CREATININE SERUM 0.9 mg/dL (0.7-1.3); GFR1 > 60 mL/min; GLUCOSE SERUM 97 mg/dL (74-106); MAGNESIUM 1.6 mg/dL (1.8-2.4); PHOSPHOROUS 5.2 mg/dL (2.5-4.9); SODIUM SERUM 142 mmol/L (136-145)
[2017-04-29 06:58] LABS: BASOPHIL % 0.8 % (0-2); PLATELET COUNT 276 x10^3mcL (130-400); RED CELL DISTRIBUTION WIDTH 17.7 % (11.5-14.5)
[2017-04-29] MEDS ORDERED: XARELTO20 M1 PO (15:26)
[2017-04-29 15:56] VITALS: BP 152/102
[2017-04-29 17:12] VITALS: BP 119/79
== END 2017-04-29 17:28 | DRG 917 ==
LOC: ED 10:27 → DU 13:54 → MU 13:54 → DU 15:39 → MU 04-25 09:08
PROVIDERS: Emergency Medicine; Family Medicine
DX: T51.0X1A Toxic effect of ethanol, accidental (unintentional), initial encounter (principal); G92 Toxic encephalopathy; E87.1 Hypo-osmolality and hyponatremia; K86.1 Other chronic pancreatitis; F10.221 Alcohol dependence with intoxication delirium; K21.9 Gastro-esophageal reflux disease without esophagitis; I48.91 Unspecified atrial fibrillation; K70.10 Alcoholic hepatitis without ascites; E87.6 Hypokalemia; E83.42 Hypomagnesemia; I10 Essential (primary) hypertension; Z68.29 Body mass index [BMI] 29.0-29.9, adult; Z87.891 Personal history of nicotine dependence; Z85.46 Personal history of malignant neoplasm of prostate; Y90.8 Blood alcohol level of 240 mg/100 ml or more; Y92.009 Unspecified place in unspecified non-institutional (private) residence as the place of occurrence of the external cause
CPT/HCPCS: 83880; 84439; 97110-GP; 97116-GP; 97530-GP; G0480; J1885; J2060; J2405; J2550; J3475; J3480; J3490; J7030; J7040; Q0092

== ENCOUNTER 2017-05-25 07:32 | Emergency (ER) | payer OTHER ==
[~2017-05-25] VITALS: Ht 188 cm; Wt 90.7 kg
[~2017-05-25 07:32] MED LIST changes: +SERTRALINE50 M1 PO
[2017-05-25 07:36] VITALS: Ht 188 cm; Wt 90.7 kg
[2017-05-25 16:13] VITALS: BP 164/104
== END 2017-05-25 16:13 | disposition home or self-care (01) ==
LOC: ED 07:32
DX: F10.129 Alcohol abuse with intoxication, unspecified (principal); E78.5 Hyperlipidemia, unspecified; K21.9 Gastro-esophageal reflux disease without esophagitis; M79.7 Fibromyalgia; K74.60 Unspecified cirrhosis of liver; I25.10 Atherosclerotic heart disease of native coronary artery without angina pectoris; I48.91 Unspecified atrial fibrillation; Z88.8 Allergy status to other drugs, medicaments and biological substances; Z79.899 Other long term (current) drug therapy
CPT/HCPCS: J1885; Q0162

== ENCOUNTER 2017-05-28 10:01 | Emergency (ER) | payer OTHER ==
[~2017-05-28] VITALS: Ht 188 cm; Wt 90.7 kg
[2017-05-28 10:08] VITALS: Ht 188 cm; Wt 90.7 kg
[2017-05-28 15:46] VITALS: BP 124/66
[2017-05-29] MEDS ORDERED: PROTONIX TR40 M1 PO (13:26)
[2017-05-29] MEDS ORDERED: XARELTO20 M1 PO (13:50)
[2017-05-29] MEDS ORDERED: METOPROLOL TART50 MG PO (13:50)
[2017-05-29] MEDS ORDERED: ATIVAN1 MG PO (17:34)
== END 2017-05-28 15:46 | disposition home or self-care (01) ==
LOC: ED 10:01
DX: G92 Toxic encephalopathy (principal); I10 Essential (primary) hypertension; K21.9 Gastro-esophageal reflux disease without esophagitis; M79.7 Fibromyalgia; E78.5 Hyperlipidemia, unspecified; E66.9 Obesity, unspecified; K74.60 Unspecified cirrhosis of liver; B19.20 Unspecified viral hepatitis C without hepatic coma; I48.91 Unspecified atrial fibrillation; Z87.19 Personal history of other diseases of the digestive system
CPT/HCPCS: 82962; Q0162

== ENCOUNTER 2017-05-28 17:31 | Inpatient (IN) | payer OTHER ==
[~2017-05-28] VITALS: Ht 175.3 cm; Wt 79.5 kg
[2017-05-28 17:50] VITALS: Ht 175.3 cm; Wt 79.5 kg
[2017-05-28 18:20] LABS: PLATELET COUNT 333 x10^3mcL (130-400); RED CELL DISTRIBUTION WIDTH 14.1 % (11.5-14.5)
[2017-05-28 18:33] LABS: BASOPHIL % 11.1 % (0-2)
[2017-05-28 18:43] LABS: BILIRUBIN TOTAL 0.93 mg/dL (0.20-1.00); CALCIUM 8.1 mg/dL (8.5-10.1); CREATININE SERUM 1.5 mg/dL (0.7-1.3); TOTAL PROTEIN, SERUM 7.6 g/dL (6.4-8.2)
[2017-05-28 18:44] LABS: POTASSIUM SERUM 2.3 mmol/L (3.5-5.1)
[2017-05-28 20:47] LABS: CHOLESTEROL/HDL RATIO 2.6; MAGNESIUM 1.6 mg/dL (1.8-2.4); PHOSPHOROUS 3.3 mg/dL (2.5-4.9)
[2017-05-28 20:55] LABS: T3 TOTAL 0.84 ng/mL
[2017-05-28 20:56] LABS: FREE T4 1.47 ng/dL (0.76-1.46); FREE THYROXINE INDEX 3.6 ug/dL (1.4-4.5); T4(THYROXINE) 9.8 ug/dL (4.7-13.3)
[2017-05-28 21:20] LABS: PLATELET COUNT 304 x10^3mcL (130-400); RED CELL DISTRIBUTION WIDTH 14.3 % (11.5-14.5)
[2017-05-28 21:39] LABS: BAND NEUTROPHIL 2 % (0-10); BASOPHIL 0 % (0-2); MONOCYTE 3 % (0-7); SEGMENTED NEUTROPHILS 88 % (37-75)
[2017-05-28 21:41] LABS: rbc morphology (normal/abnorm) ABNORMAL (NORMAL)
[2017-05-28 22:03] VITALS: BP 122/93
[2017-05-28 23:42] VITALS: BP 148/85
[2017-05-29] VITALS (8 sets, daily range): BP systolic 118–157; BP diastolic 51–99
[2017-05-29 00:09] LABS: BASOPHIL % 1.6 % (0-2); PLATELET COUNT 295 x10^3mcL (130-400); RED CELL DISTRIBUTION WIDTH 14.5 % (11.5-14.5)
[2017-05-29 03:06] LABS: BASOPHIL % 0.7 % (0-2); PLATELET COUNT 267 x10^3mcL (130-400); RED CELL DISTRIBUTION WIDTH 14.2 % (11.5-14.5)
[2017-05-29 03:36] LABS: CALCIUM 7.6 mg/dL (8.5-10.1); CARBON DIOXIDE 26.8 mmol/L (21-32); CREATININE SERUM 1.4 mg/dL (0.7-1.3); POTASSIUM SERUM 3.5 mmol/L (3.5-5.1)
[2017-05-29 04:00] LABS: microscopic required? NO
[2017-05-29 04:37] LABS: urine erythrocyte NEGATIVE (NEGATIVE)
[2017-05-29 04:59] LABS: AMPHETAMINE QUAL UR NONE DETECTED (NEG <=1000)
[2017-05-29] MEDS ORDERED: PROTONIX TR40 M1 PO (13:26)
[2017-05-29] MEDS ORDERED: XARELTO20 M1 PO (13:50)
[2017-05-29] MEDS ORDERED: METOPROLOL TART50 MG PO (13:50)
[2017-05-29] MEDS ORDERED: ATIVAN1 MG PO (17:34)
== END 2017-05-29 18:22 | disposition home or self-care (01) | DRG 368 ==
LOC: ED 17:31 → IC 18:59
PROVIDERS: Emergency Medicine; Family Medicine; Internal Medicine
PROC: 0DJ08ZZ Inspection of Upper Intestinal Tract, Via Natural or Artificial Opening Endoscopic (ICD-10-PCS; principal; 2017-05-29 12:30)
DX: I85.01 Esophageal varices with bleeding (principal); G92 Toxic encephalopathy; N17.0 Acute kidney failure with tubular necrosis; E87.1 Hypo-osmolality and hyponatremia; E44.0 Moderate protein-calorie malnutrition; K29.71 Gastritis, unspecified, with bleeding; E78.5 Hyperlipidemia, unspecified; E66.9 Obesity, unspecified; I48.91 Unspecified atrial fibrillation; I25.10 Atherosclerotic heart disease of native coronary artery without angina pectoris; K21.9 Gastro-esophageal reflux disease without esophagitis; F41.9 Anxiety disorder, unspecified; F32.9 Major depressive disorder, single episode, unspecified; E87.6 Hypokalemia; E86.0 Dehydration; F10.20 Alcohol dependence, uncomplicated; Y90.9 Presence of alcohol in blood, level not specified; I10 Essential (primary) hypertension; R74.0 Nonspecific elevation of levels of transaminase and lactic acid dehydrogenase [LDH]; E83.42 Hypomagnesemia; D72.829 Elevated white blood cell count, unspecified; K20.9 Esophagitis, unspecified; I83.90 Asymptomatic varicose veins of unspecified lower extremity; Z79.899 Other long term (current) drug therapy; Z88.4 Allergy status to anesthetic agent; Z82.49 Family history of ischemic heart disease and other diseases of the circulatory system; Z87.891 Personal history of nicotine dependence; Z68.27 Body mass index [BMI] 27.0-27.9, adult
CPT/HCPCS: 43235; 83880; 84439; C9113; G0480; J1200; J1610; J2060; J2250; J2270; J2310; J2405; J2550; J3010; J3475; J3480; J3490; J7030; Q0092